=== PATIENT | female | born 1935 | race Caucasian/White ===

== ENCOUNTER 2018-03-08 09:02 | Outpatient (CLI) | payer MEDICARE | END 2018-03-08 09:03 | disposition home or self-care (01) | LOC: BICMRI 09:02 | PROVIDERS: ATTEND Family Medicine | DX: F03.90 Unspecified dementia, unspecified severity, without behavioral disturbance, psychotic disturbance, mood disturbance, and anxiety (principal); G31.9 Degenerative disease of nervous system, unspecified; I67.9 Cerebrovascular disease, unspecified | CPT/HCPCS: 70551 ==

== ENCOUNTER 2021-07-16 14:22 | Outpatient (CLI) | payer MEDICARE ==
[2021-07-16 15:34] LABS: Bilirubin Neg (Negative); Blood, Urine 10 (Negative); Clarity Clear (Clear); Glucose, Urine (Dipstick) Normal (Negative); Ketone, Urine Negative (Negative); Leukocyte 500 (Negative); Nitrite Negative (Negative); Protein, Urine (Dipstick) 15 mg/dl (Neg-Trace); Specific Gravity, Urine 1.025 (1.002-1.036)
[2021-07-16 15:41] LABS: #Basophils 0.1 10x3/uL (0.0-0.2); #Eosinphils 0.2 10x3/uL (0.0-0.5); #Monocytes 0.9 10x3/uL (0.0-1.1); #Neutrophils 5.3 10x3/uL (1.5-8.4); %Basophils 0.9 % (0.0-2.0); %Eosinophils 2.2 % (0.0-6.0); %Lymphocytes 21.6 % (18.0-47.0); %Monocytes 10.7 % (0.0-10.0); %Neutrophils 64.4 % (40.0-75.0); Hemoglobin 13.8 g/dL (12.0-15.5); Mean Corpuscular HGB CONC 31.8 g/dL (32.0-36.0); Mean Corpuscular Hemoglobin 29.4 pg (27.0-33.0); Mean Corpuscular Volume 92.5 fl (81.6-98.3); Mean Platelet Volume 11.9 fl (7.4-10.4); Platelet Count 213 10x3/uL (150-450); RBC Distribution Width 12.3 % (11.5-14.5); Red Blood Cell (RBC) Count 4.69 10x6/uL (3.90-5.03); White Blood Cell (WBC) Count 8.2 10x3/uL (3.5-10.5)
[2021-07-16 15:42] LABS: Bacteria/HPF Rare-Few HPF (None Seen); WBC/HPF 21-50 HPF (0-3)
[2021-07-16 16:06] LABS: Prothrombin Time 10.7 sec (9.5-12.1)
[2021-07-16 16:08] LABS: Anion Gap 16 mmol/L (10-20); BUN (Urea Nitrogen) 15 mg/dL (9.8-20.1); Calc. Creatinine Clearance 0 mL/min (70-130); Calcium 9.9 mg/dL (7.8-10.44); Carbon Dioxide 27 mmol/L (23-31); Chloride 102 mmol/L (98-107); Glucose 102 mg/dL (83-110); Sodium 141 mmol/L (136-145)
[2021-07-17 08:54] LABS: SARS-CoV-2 PCR by NAA Not Detected (NotDetected)
== END 2021-07-16 14:23 | disposition home or self-care (01) ==
LOC: LABBT 14:22
PROVIDERS: ATTEND Orthopaedic Surgery
DX: Z01.818 Encounter for other preprocedural examination (principal); M17.11 Unilateral primary osteoarthritis, right knee; Z20.822 Contact with and (suspected) exposure to COVID-19
CPT/HCPCS: 80048; 85025; 85610; 87081; 93005; U0003; U0005; 81003; 81015; 93010

== ENCOUNTER 2021-07-21 08:06 | Inpatient (IN) | payer MEDICARE ==
[2021-07-15 16:15] VITALS: BMI 24.1
[2021-07-21] MEDS ORDERED: Tranexamic Acid 1,000 MG/10 ML VIAL ONE (10:17)
[2021-07-21] MEDS ORDERED: Sodium Chloride 0.9% 100 ML ONE (10:17)
[2021-07-21] MEDS ORDERED: ceFAZolin 2 GM/DEX 5% 100 ML BAG ONE (10:17)
[2021-07-21] MEDS ORDERED: Vancomycin 1 GM/200 ML BAG ONE (10:17)
[2021-07-21] MEDS ORDERED: Vancomycin 1 GM in Premix Bag 1 BAG IVPB SCH (10:30)
[2021-07-21] MEDS ORDERED: Fentanyl 100 MCG/2 ML VIAL ONE ×3 (10:35→13:20)
[2021-07-21] MEDS ORDERED: Midazolam HCl 2 mg/2 ml Vial ONE (10:35)
[2021-07-21] MEDS ORDERED: Fentanyl 100 MCG/2 ML VIAL IV PRN (10:48)
[2021-07-21] MEDS ORDERED: HYDROcodone/Acetaminophen 10/325 mg Tablet PO PRN (11:00)
[2021-07-21] MEDS ORDERED: traMADol HCl 50 MG TAB PO PRN (11:00)
[2021-07-21] MEDS ORDERED: Promethazine HCl 25 MG/ML VIAL IM PRN ×3 (11:00→13:15)
[2021-07-21] MEDS ORDERED: Ropivacaine 0.2% 550 ML 550 ML NERVE BLCK SCH (11:00)
[2021-07-21] MEDS ORDERED: Zolpidem Tartrate 5 MG TAB PO PRN ×2 (11:00→11:02)
[2021-07-21] MEDS ORDERED: Ondansetron PF 4 MG/2 ML Vial IVP PRN (11:00)
[2021-07-21] MEDS ORDERED: Ketorolac Tromethamine 30 MG/ML VIAL IVP PRN (11:00)
[2021-07-21] MEDS ORDERED: Acetaminophen 325 MG TAB PO PRN (11:02)
[2021-07-21] MEDS ORDERED: diphenhydrAMINE 25 MG CAP PO PRN (11:02)
[2021-07-21] MEDS ORDERED: Bupivacaine PF 0.5% 30 ML VIAL ONE (11:13)
[2021-07-21] MEDS ORDERED: PROPOFOL 200 MG/20 ML VIAL ONE (11:39)
[2021-07-21] MEDS ORDERED: Ondansetron PF 4 MG/2 ML Vial ONE ×2 (11:39→11:47)
[2021-07-21] MEDS ORDERED: Bupivacaine HCl 0.5%/Epinephrine 1:200,000/PF 30 ml Vial ONE (11:39)
[2021-07-21] MEDS ORDERED: Lidocaine 1% PF 5 ML VIAL ONE (11:39)
[2021-07-21] MEDS ORDERED: Promethazine HCl 25 MG/ML VIAL IVPB PRN (13:15)
[2021-07-21] MEDS ORDERED: Ondansetron HCl/PF 4 MG/2 ML Vial IVP PRN (13:15)
[2021-07-21] MEDS: Sodium Chloride 0.9% 1,000 ML IV SCH ×2 (16:33→20:47)
[2021-07-21] MEDS: Ondansetron PF 4 MG/2 ML Vial IVP PRN (16:33)
[2021-07-21] MEDS ORDERED: ceFAZolin 2 GM/Dextrose 50 ML 2 GM in Premix Bag 1 BAG IVPB SCH (18:00)
[2021-07-21] MEDS: ceFAZolin 2 GM/Dextrose 50 ML 2 GM in Premix Bag 1 BAG IVPB SCH (20:46)
[2021-07-21] MEDS: Aspirin 81 mg Enteric Coated Tablet PO SCH (20:47)
[2021-07-21] MEDS ORDERED: Non-Formulary Item 1 EACH (Multivitamin [Multivitamin] 1 EACH Tablet) PO SCH (21:00)
[2021-07-22] MEDS: ceFAZolin 2 GM/Dextrose 50 ML 2 GM in Premix Bag 1 BAG IVPB SCH (01:12)
[2021-07-22] MEDS: Sodium Chloride 0.9% 1,000 ML IV SCH ×2 (03:50→18:16)
[2021-07-22] MEDS: Levothyroxine Sodium 50 MCG TAB PO SCH (05:43)
[2021-07-22 06:54] LABS: Hemoglobin 11.4 g/dL (12.0-16.0); Mean Corpuscular HGB CONC 34.1 g/dL (32.0-36.0); Mean Corpuscular Hemoglobin 31.9 pg (27.0-31.0); Mean Corpuscular Volume 93.5 fL (78.0-98.0); Mean Platelet Volume 9.2 fL (7.4-10.4); Platelet Count 125 thou/uL (130-400); RBC Distribution Width 11.2 % (11.5-14.5); Red Blood Cell (RBC) Count 3.57 mill/uL (4.20-5.40); White Blood Cell (WBC) Count 6.1 thou/uL (4.8-10.8)
[2021-07-22] MEDS: Ferrous Gluconate 324 MG TAB PO SCH ×2 (08:41→18:16)
[2021-07-22] MEDS: Multivitamin W/ Minerals 1 TAB PO SCH (08:42)
[2021-07-22] MEDS: Aspirin 81 mg Enteric Coated Tablet PO SCH ×2 (08:42→21:10)
[2021-07-22] MEDS: Senokot S 8.6-50 MG TAB PO SCH ×2 (08:42→21:11)
[2021-07-22] MEDS: diphenhydrAMINE 25 MG CAP PO SCH (08:43)
[2021-07-22] MEDS ORDERED: FLU VACC QS2021-22(65YR UP)/PF 240 MCG/0.7 ML SYRINGE IM ONE (09:00)
[2021-07-22] MEDS: HYDROcodone/Acetaminophen 10/325 mg Tablet PO PRN (21:10)
[2021-07-23] MEDS: Sodium Chloride 0.9% 1,000 ML IV SCH ×2 (01:06→14:03)
[2021-07-23] MEDS: Levothyroxine Sodium 50 MCG TAB PO SCH (06:08)
[2021-07-23 08:18] LABS: Hemoglobin 11.7 g/dL (12.0-16.0); Mean Corpuscular HGB CONC 33.1 g/dL (32.0-36.0); Mean Corpuscular Volume 93.8 fL (78.0-98.0); Mean Platelet Volume 9.8 fL (7.4-10.4); Platelet Count 110 thou/uL (130-400); RBC Distribution Width 11.4 % (11.5-14.5); Red Blood Cell (RBC) Count 3.77 mill/uL (4.20-5.40); White Blood Cell (WBC) Count 8.2 thou/uL (4.8-10.8)
[2021-07-23] MEDS: traMADol HCl 50 MG TAB PO PRN ×2 (08:27→18:09)
[2021-07-23] MEDS: Multivitamin W/ Minerals 1 TAB PO SCH (08:27)
[2021-07-23] MEDS: Senokot S 8.6-50 MG TAB PO SCH ×2 (08:27→20:16)
[2021-07-23] MEDS: Ferrous Gluconate 324 MG TAB PO SCH ×2 (08:27→18:08)
[2021-07-23] MEDS: Aspirin 81 mg Enteric Coated Tablet PO SCH ×2 (08:27→20:16)
[2021-07-23] MEDS: diphenhydrAMINE 25 MG CAP PO SCH (09:15)
[2021-07-24] MEDS: Sodium Chloride 0.9% 1,000 ML IV SCH ×3 (01:01→23:29)
[2021-07-24] MEDS: Levothyroxine Sodium 50 MCG TAB PO SCH (05:56)
[2021-07-24 07:03] LABS: Hemoglobin 10.4 g/dL (12.0-16.0); Mean Corpuscular HGB CONC 32.3 g/dL (32.0-36.0); Mean Corpuscular Hemoglobin 30.3 pg (27.0-31.0); Mean Corpuscular Volume 93.7 fL (78.0-98.0); Mean Platelet Volume 9.7 fL (7.4-10.4); Platelet Count 113 thou/uL (130-400); RBC Distribution Width 11.4 % (11.5-14.5); Red Blood Cell (RBC) Count 3.44 mill/uL (4.20-5.40); White Blood Cell (WBC) Count 7.4 thou/uL (4.8-10.8)
[2021-07-24] MEDS: Ferrous Gluconate 324 MG TAB PO SCH ×2 (08:39→17:57)
[2021-07-24] MEDS: traMADol HCl 50 MG TAB PO PRN ×2 (08:39→17:57)
[2021-07-24] MEDS: Aspirin 81 mg Enteric Coated Tablet PO SCH ×2 (08:39→20:59)
[2021-07-24] MEDS: Multivitamin W/ Minerals 1 TAB PO SCH (08:40)
[2021-07-24] MEDS: Senokot S 8.6-50 MG TAB PO SCH ×2 (08:40→20:59)
[2021-07-24] MEDS: diphenhydrAMINE 25 MG CAP PO SCH (08:40)
[2021-07-24] MEDS: Ondansetron PF 4 MG/2 ML Vial IVP PRN (19:18)
[2021-07-25] MEDS: Levothyroxine Sodium 50 MCG TAB PO SCH (06:40)
[2021-07-25 07:19] LABS: Hemoglobin 11.3 g/dL (12.0-16.0); Mean Corpuscular HGB CONC 32.5 g/dL (32.0-36.0); Mean Corpuscular Hemoglobin 30.7 pg (27.0-31.0); Mean Corpuscular Volume 94.5 fL (78.0-98.0); Mean Platelet Volume 9.1 fL (7.4-10.4); Platelet Count 152 thou/uL (130-400); RBC Distribution Width 11.5 % (11.5-14.5); Red Blood Cell (RBC) Count 3.66 mill/uL (4.20-5.40); White Blood Cell (WBC) Count 7.3 thou/uL (4.8-10.8)
[2021-07-25] MEDS: Sodium Chloride 0.9% 1,000 ML IV SCH ×2 (07:39→15:22)
[2021-07-25] MEDS: Multivitamin W/ Minerals 1 TAB PO SCH (08:13)
[2021-07-25] MEDS: Senokot S 8.6-50 MG TAB PO SCH ×2 (08:13→20:07)
[2021-07-25] MEDS: Aspirin 81 mg Enteric Coated Tablet PO SCH ×2 (08:14→20:06)
[2021-07-25] MEDS: diphenhydrAMINE 25 MG CAP PO SCH (08:14)
[2021-07-25] MEDS: Ferrous Gluconate 324 MG TAB PO SCH ×2 (08:14→17:23)
[2021-07-25] MEDS ORDERED: Polyethylene Glycol 3350 17 GM Packet PO PRN (08:59)
[2021-07-25] MEDS: traMADol HCl 50 MG TAB PO PRN ×2 (12:42→20:06)
[2021-07-26] MEDS: Sodium Chloride 0.9% 1,000 ML IV SCH ×2 (01:15→13:21)
[2021-07-26] MEDS: Levothyroxine Sodium 50 MCG TAB PO SCH (04:49)
[2021-07-26] MEDS: traMADol HCl 50 MG TAB PO PRN ×2 (04:50→13:58)
[2021-07-26] MEDS: Multivitamin W/ Minerals 1 TAB PO SCH (08:01)
[2021-07-26] MEDS: Ferrous Gluconate 324 MG TAB PO SCH ×2 (08:01→17:29)
[2021-07-26] MEDS: Senokot S 8.6-50 MG TAB PO SCH ×2 (08:02→21:19)
[2021-07-26] MEDS: Aspirin 81 mg Enteric Coated Tablet PO SCH ×2 (08:02→21:15)
[2021-07-26] MEDS: diphenhydrAMINE 25 MG CAP PO SCH (08:02)
[2021-07-26] MEDS: HYDROcodone/Acetaminophen 10/325 mg Tablet PO PRN (21:15)
[2021-07-27] MEDS: Levothyroxine Sodium 50 MCG TAB PO SCH (06:30)
[2021-07-27] MEDS: diphenhydrAMINE 25 MG CAP PO SCH (08:52)
[2021-07-27] MEDS: Aspirin 81 mg Enteric Coated Tablet PO SCH (08:52)
[2021-07-27] MEDS: Senokot S 8.6-50 MG TAB PO SCH (08:53)
[2021-07-27] MEDS: HYDROcodone/Acetaminophen 10/325 mg Tablet PO PRN (08:53)
[2021-07-27] MEDS: Ferrous Gluconate 324 MG TAB PO SCH (08:53)
[2021-07-27] MEDS: Multivitamin W/ Minerals 1 TAB PO SCH (08:55)
[2021-07-27] MEDS: Sodium Chloride 0.9% 1,000 ML IV SCH (12:07)
[2021-07-27 12:21] VITALS: BP 150/82; TEMP 97.4
== END 2021-07-27 14:19 | disposition home or self-care (01) | DRG 470 ==
LOC: SDC 08:06 → SURG A 11:03 → SDC 07-22 09:25 → SURG A 07-22 09:25 → OBSVTOIN 07-23 12:55
PROVIDERS: ADMIT Orthopaedic Surgery; ATTEND Orthopaedic Surgery
PROC: 0SRC0J9 Replacement of Right Knee Joint with Synthetic Substitute, Cemented, Open Approach (ICD-10-PCS; principal; 2021-07-21)
DX: M17.11 Unilateral primary osteoarthritis, right knee (principal); Z20.822 Contact with and (suspected) exposure to COVID-19; F17.210 Nicotine dependence, cigarettes, uncomplicated; Z90.49 Acquired absence of other specified parts of digestive tract; D64.89 Other specified anemias; I95.1 Orthostatic hypotension
CPT/HCPCS: 36415; 85027; 96374; A4306; C1713; C1776; G0378; J0690; J1885; J2250; J2405; J2704; J2795; J3010; J3370; J3490; J7050; S0020